=== PATIENT | male | born 1975 | race African-American/Black ===

== ENCOUNTER 2016-10-13 15:58 | Inpatient (IN) ==
[2016-10-13] MEDS ORDERED: HYDROmorphone 2 MG/1 ML VIAL IV STA (16:46)
[2016-10-13] MEDS ORDERED: THIAMINE INJ 100 MG, FOLIC ACID INJ 1 MG, MAGNESIUM SULF INJ 2 GM, MULTIVITAMIN INJ 10 ... IV ONE (16:46)
[2016-10-13] MEDS ORDERED: ONDANSETRON 4 MG/2 ML VIAL IV STA (16:46)
--- NOTE | 2016-10-13 16:47 | Emergency Department Note ---
IJarad Brittany, am scribing for, and in the presence of, Yoselin Michaud DO 16:42. IJaswant Debra, DO, personally performed the services described in this documentation, ascribed by Muna Abraham in my presence, and it is both accurate and complete 647 . Arrival - Arrival Chief Complaint: Non-Specific Stated Complaint: GI bleed ED Nursing Triage Note: pt arrived by ems from home with c/o "rectal bleeding." Pt has obvious ascites to abd, bruising to arms, abd, and flank and pt is jaundiced. pt's scrotum is massively enlarged with bleeding and purulent drainage noted to creases of groin. no bleeding noted at rectum. pt also reports recent falls. pt states was seen at [facility] in [place] last saturday. Mode of Arrival: Stretcher Limitations: No Limitations Source: Patient, RN Notes Reviewed - History of Present Illness HPI Narrative: Patient is a 41 y/o black male presenting to the ED by EMS for further evaluation of rectal bleeding. Patient and family do not disclose exact date bleeding onse, but patient does mention he noticed this while providing perineal care. They do however mention that patient was seen at [place], [place] a week ago, but patient did not receive any further treatment secondary to the need for payment upfront -per patient. He has obvious ascites, abdominal distention, and scleral icterus. Patient has a massively enlarged penis and testicles to such an extent that the meatus is not visible. It is unknown the duration of this enlargement. Patient states he has tried to be seen about this, but due to finances he has not been able to have a full work up without some type of payment. He denies ever being told of history of Cirrhosis. He does admit to history of ETOH use, but last use was 1-2 months ago. Patient has a history of seizures and takes Dilantin for this. Upon EMS arrival to his residence, patient had a systolic in the 70's. He was given a 250 cc bolus en route to the ED and in room at current he has a systolic of 100. Patient has no other complaint/pain. Allergies/Adverse Reactions: Allergies Allergy/AdvReac Type Severity Reaction Status Date / Time No Known Allergies Allergy Verified 10/13/16 16:18 Home Medications: Home Medications Medication Instructions Recorded Confirmed Type Phenytoin ER Cap [Dilantin Cap] 300 mg PO BEDTIME 10/13/16 10/13/16 History Review of System - Review of System 12 point system: reviewed and no additional remarkable complaints except as stated - Review of System Eyes: Present: as per HPI Gastrointestinal: Present: as per HPI, hematochezia Medical,Surgical,& Family Hx - Medical History Cardio: History of: Hypertension Neurology: History of: Seizures - Social History Smoking Status: Current every day smoker Frequency of Alcohol Use: Occasionally Type of Drug Use: None Exam Vital Signs: Vital Signs Temperature 98.5 F 10/13/16 16:41 Pulse Rate 65 10/13/16 16:41 Respiratory Rate 18 10/13/16 16:41 Blood Pressure 100/67 10/13/16 16:41 O2 Sat by Pulse Oximetry 100 10/13/16 15:58 - General General appearance: alert, in no apparent distress - Head Head exam: Present: atraumatic, normocephalic, normal inspection - Eye Eye exam: Present: PERRL, EOMI, scleral icterus. Absent: normal appearance - ENT ENT exam: Present: normal exam, normal oropharynx - Neck Neck exam: Present: normal inspection, full ROM, trachea midline - Chest Chest inspection: Present: normal inspection, symmetric chest wall rise - Respiratory Respiratory exam: Present: normal lung sounds bilaterally. Absent: rales, rhonchi, wheezes - Cardiovascular Cardiovascular exam: Present: regular rate, normal rhythm, normal heart sounds. Absent: murmur, rubs, gallop - Abdominal Exam Abdominal exam: Present: soft, distention, tenderness (diffusely tender on the right of the abdomen), normal bowel sounds, organomegaly (palpably enlarged liver, border is palpable), ascites - exam: Absent: normal inspection (penile and testicular edema, meatus is not visible) - Extremities Exam Extremities exam: Present: normal inspection - Back Exam Back exam: Present: normal inspection - Neurological Exam Neurological exam: Present: alert, oriented X3, CN II-XII intact. Absent: motor sensory deficit - Psychiatric Psychiatric exam: Present: normal affect, normal mood - Skin Skin exam: Present: warm, dry Course Course Narrative: spoke with hospitalist who will admit pt Results - Labs CBC & BMP: 10/13/16 16:42 10/13/16 16:42 Lab Results: I have reviewed the patients labs Labs: Laboratory Tests 10/13/16 10/13/16 16:42 16:42 WBC 9.3 RBC 2.98 L Hgb 7.3 L Hct 21.3 L MCV 71.5 L MCH 25 L RDW 25.4 H Plt Count 74 L Lymph % (Auto) 17.8 L [place] % (Auto) 19.7 H [place] # (Auto) 1.8 H INR 1.9 PT Patient/Control Mix 20.4 Circ Anticoag PTT 39.9 Laboratory Tests 10/13/16 16:42 Sodium 138 Potassium 3.1 L Chloride 103 Carbon Dioxide 23 Anion Gap 15.1 H BUN 25 H Creatinine 2.80 H GFR Calculation 37 BUN/Creatinine Ratio 8.00 Glucose 147 H Calculated Osmolality 281.7 Calcium 7.1 L Total Bilirubin 7.10 H AST 92 H Albumin 1.3 L Globulin 5.7 H Albumin/Globulin Ratio 0.2 L Laboratory Tests 10/13/16 16:42 Ammonia 63 H Lipase 372.0 - Diagnostic Findings Procedure: Ultrasound: report reviewed by me (await report) Disposition Clinical Impression: Lower gastrointestinal hemorrhage Case discussed with: patient, patient's family Disposition: Still a Patient Condition: Stable Time of Disposition: 17:57
[2016-10-13] MEDS ORDERED: HYDROmorphone 2 MG/1 ML VIAL ONE (16:52)
[2016-10-13] MEDS ORDERED: ONDANSETRON 4 MG/2 ML VIAL ONE (16:52)
[2016-10-13 16:57] LABS: Basophils % 0.3 % (0.0-0.8); Eosinophils # 0.2 10*3/uL (0.0-0.87); Eosinophils % 1.7 % (0.00-10.9); Hematocrit 21.3 VOL% (42.0-52.0); Hemoglobin 7.3 GM/DL (14.0-18.0); Immature Granulocytes % 0.5 %; Immature Granulocytes Absolute 0.05 #; Lymphocytes # 1.7 10*3/uL (1.4-4.0); Lymphocytes % 17.8 % (21.2-54.2); Mean Corpuscular HGB Conc 34.3 GM/DL (32-36); Mean Corpuscular Hemoglobin 25 PG (27-34); Mean Corpuscular Volume 71.5 FL (87-102); Monocytes # 1.8 10*3/uL (0.11-0.8); Monocytes % 19.7 % (1.7-12.7); Neutrophils # 5.6 10*3/uL (1.4-7.4); Red Blood Count 2.98 MC/CUMM (3.8-5.5); Red Cell Distribution Width 25.4 % (9.3-17.3); White Blood Count 9.3 T/CUMM (4-12)
[2016-10-13 17:05] LABS: Platelet Count 74 T/CUMM (130-400)
[2016-10-13 17:07] LABS: INR 1.9; PT Patient Result 20.4 SECS; Partial Thromboplastin Time 39.9 SECS (0-40)
[2016-10-13 17:14] LABS: Albumin 1.3 G/DL (3.4-5.0); Bilirubin,Total 7.1 MG/DL (0.2-1.0); Calcium 7.1 MG/DL (8.5-10.1); Osmolality,Calculated 281.7 MOS/KG (273-304); Potassium 3.1 MMOL/L (3.5-5.1)
[2016-10-13] MEDS ORDERED: POTASSIUM CHLORIDE 20 MEQ TABLET PO STA (17:17)
[2016-10-13 17:42] LABS: Band Neutrophils 1 % (0-10); Eosinophils 1 % (0-10); Hypochromasia 1+; Lymphocytes 13 % (20-55); Platelet Estimate Decreased; Segmented Neutrophils 76 % (50-85); Target Cells Few; Total Cells Counted 100
--- NOTE | 2016-10-13 18:06 | Ultrasound Report ---
Exam: US scrotum Date: 10/13/2016 4:35 PM Indication: Enlarged scrotum Comparison: None Findings: Right testicle. The right testicle is not definitely identified in the markedly enlarged scrotum. Right epididymis is not definitely identified. Left testicle. 3.4 x 2.2 x 2.3 cm with arterial Doppler blood flow and spectral analysis Left epididymis. Not definitely visualized Impression: 1. Somewhat limited study due to markedly edematous and swollen scrotum. Large bilateral large hydroceles. The right testicle is not definitely identified. 2. The left testicle demonstrates preserved blood flow. PROCEDURE INTERPRETED AT [facility] DEPARTMENT OF RADIOLOGY Final Report Signed by: Hood Marr
[2016-10-13] MEDS ORDERED: DOCUSATE SODIUM 100 MG CAPSULE PO PRN (18:30)
[2016-10-13] MEDS ORDERED: ACETAMINOPHEN 325 MG TABLET PO PRN (18:30)
--- NOTE | 2016-10-13 18:35 | Hospitalist History & Physical ---
<Dov Skaggsakuamodesta - Last Filed: 10/13/16 18:33> Assessment and Plan (1) Anemia Status: Acute Current Visit: Yes (2) Hypokalemia Status: Acute Current Visit: Yes (3) Seizure disorder Status: Acute Current Visit: Yes (4) Hepatic encephalopathy Status: Acute Current Visit: Yes (5) ETOH abuse Status: Acute Current Visit: Yes History of Present Illness History of present illness: Mr. Wagner is a 41 year old male Home Medications Medication Instructions Recorded Confirmed Type Phenytoin ER Cap [Dilantin Cap] 300 mg PO BEDTIME 10/13/16 10/13/16 History Allergies Allergy/AdvReac Type Severity Reaction Status Date / Time No Known Allergies Allergy Verified 10/13/16 16:18 Medical,Surgical,& Family Hx - Medical History Cardio: History of: Hypertension Neurology: History of: Seizures - Social History Smoking Status: Current every day smoker Frequency of Alcohol Use: Occasionally Type of Drug Use: None Exam - Constitutional Vitals: Period Temp Pulse Resp BP Sys/Lai Pulse Ox Last 24 Hr 98.5 F-98.5 F 65-93 16-18 95-106/58-68 98-100 Results - Labs CBC & BMP: 10/13/16 16:42 10/13/16 16:42 <Juancarlos Lorenzana - Last Filed: 10/13/16 19:54> Assessment and Plan - Time spent with patient Time spent with patient: Greater than 30 minutes (I spent over 45 minutes with this patient and his family at the bedside explaining his diagnosis and treatment plan.) (1) End stage liver disease Status: Chronic Assessment and plan: The patient presents with multiple medical problems related to chronic liver disease and cirrhosis. His family members report he was given a diagnosis of advanced cirrhosis with 6 months to live approximately 18 months ago. He has significant bruising and jaundice with elevated bilirubin and elevated INR as well as thrombocytopenia and a long sequela of liver disease. Most pressing is his scrotal swelling and edema with pain and skin breakdown as a result. They understand that management of his symptoms may be difficult and that there is no cure for his illness. He is DNR. Current Visit: Yes (2) Cirrhosis of liver Status: Acute Current Visit: Yes Qualifiers: Hepatic cirrhosis type: alcoholic cirrhosis Ascites presence: with ascites Qualified Code(s): K70.31 - Alcoholic cirrhosis of liver with ascites (3) Thrombocytopenia Status: Acute Assessment and plan: Platelet count 74,000 Current Visit: Yes (4) LOUIS (acute kidney injury) Status: Acute Assessment and plan: Elevated creatinine suspicious for hepatorenal syndrome in a patient with chronic liver disease. Current Visit: Yes (5) Scrotal edema Status: Acute Current Visit: Yes (6) Anemia Status: Acute Assessment and plan: This is likely multifactorial related to chronic liver disease as well as some acute blood loss due to his thrombocytopenia Current Visit: Yes (7) Hypokalemia Status: Acute Current Visit: Yes (8) Seizure disorder Status: Chronic Assessment and plan: On phenytoin. Will check levels. Current Visit: Yes History of Present Illness Chief complaint: Scrotal pain and swelling with rectal bleeding History of present illness: Mr. Wagner is a 41 year old black male that presented to the emergency department with scrotal pain and swelling. He is accompanied by his sisters who provide the majority of the history. Patient reports he was seen at another hospital in [facility] a few days ago and was sent home. Triage records indicate the patient complains of rectal bleeding but is unsure if it is coming from the rectum or scrotum due to significant amount of swelling in that area. According to his family members, this has been an ongoing problem for over a year. After approximately 30 minutes of questioning the patient and his family members they were forthcoming with the fact that he was diagnosed with advanced cirrhosis and given approximately 6 months to live- this happened approximately 18 months ago. Initially the patient continued to drink alcohol but stopped drinking back in April. He is noted to be very ill -appearing with jaundice and scleral icterus as well as multiple areas of bruising and is very weak and lethargic. Further examination reveals a markedly enlarged scrotum that is very painful to touch and has evidence of skin breakdown bilaterally with some bleeding and oozing. The pain is severe, constant and worsening over the last several days to months. The bleeding is also bilateral but worse on the left. There is also a foul smelling discharge from the perineal area. The patient is being admitted to the hospitalist service for further evaluation and treatment of his severe scrotal edema pain and swelling as well as treatment of the sequela of chronic liver disease and consultation with gastroenterology, nephrology and possibly paracentesis for relief of symptoms. I have explained to the patient and his family the severity of his illness and that his 30 day survival is questionable given the degree of liver dysfunction. The family explained that they understand and expected this and only wish for him to be made comfortable. They agreed to not resuscitate him in the event of cardiopulmonary arrest with the understanding that his chronic liver disease is not curable. We will consider therapeutic paracentesis if this produces some comfort-however given his coagulopathy this may be difficult to achieve. Medical,Surgical,& Family Hx - Medical History Cardio: History of: Hypertension Neurology: History of: Seizures Gastrointestinal: History of: Liver Problems - Surgical History Orthopedic Surgeries: Surgical HX of;: Orthopedic Surgery (Ankle surgery) - Family History Family History: Reports;: Family Hypertension - Social History Smoking Status: Current every day smoker Frequency of Alcohol Use: Occasionally Type of Drug Use: None Marital Status: Single Lives With:: Parent Functional capacity: independent ambulation 12 point system: reviewed and no additional remarkable complaints except as stated - Constitutional Constitutional: Present: fatigue, lethargy, malaise - Gastrointestinal Gastrointestinal: Present: as per HPI, abdominal pain, bloating, early satiety, nausea, jaundice - Genitourinary Genitourinary: Present: as per HPI, scrotal swelling Exam - Constitutional Vitals: Period Temp Pulse Resp BP Sys/Lai Pulse Ox Last 24 Hr 82-85 18-18 99-106/58-58 100-100 General appearance: disheveled Exam: Constitutional System: Moderate distress. No tremulousness. Head: Normocephalic, atraumatic. Ears, Nose and Throat System: No pain or tenderness. No epistaxis or discharge. Eyes System: Pupils equal, round, and reactive. Extraocular muscles intact. Scleral icterus noted Neck: Supple, without adenopathy, No jugular venous distention. No thyromegaly, neck mass, or prior surgery apparent. Respiratory System: Chest clear to auscultation. Cardiovascular System: Heart with regular rate and rhythm. No murmur. GI System: Abdomen soft, nontender. Normo active bowel sounds present. Distended with ascites. Umbilical hernia noted. Large areas of bruising along the right flank noted. Musculoskeletal System: limbs with no pedal edema. Full distal pulses. Multiple areas of bruising along the chest wall. Neurological System: No discernable sensory deficit. No aphasia. No evidence of encephalopathy at this time Psychiatric System: Conversation is rational Genitourinary: Severe scrotal swelling including the suprapubic fat pad and the surrounding perineum. There is skin breakdown noted bilaterally along the scrotum with purulent discharge and a foul odor. Bleeding is noted from the skin breakdown. The penis is not visible secondary to significant swelling. The testicles are not palpable. The entire area his pain full to touch. Results - Labs CBC & BMP: 10/13/16 16:42 10/13/16 16:42 Lab Results: I have reviewed the past 24 hour labs - Diagnostic Findings Procedure: Ultrasound: report reviewed by me, X-ray: report reviewed by me
[2016-10-13] MEDS ORDERED: POTASSIUM CHLORIDE 20 MEQ TABLET PO ONE (18:37)
[2016-10-13] MEDS ORDERED: ZALEPLON 5 MG CAPSULE PO PRN (19:26)
[2016-10-13] MEDS ORDERED: ONDANSETRON 4 MG/2 ML VIAL IV PRN (19:26)
[2016-10-13] MEDS ORDERED: MORPHINE 2 MG/1 ML SYRINGE IV PRN (19:26)
[2016-10-13] MEDS: LACTULOSE 20 GM/30 ML UDCUP PO SCH ×3 (21:16→23:51)
[2016-10-14] MEDS: LACTULOSE 20 GM/30 ML UDCUP PO SCH ×6 (03:20→22:33)
[2016-10-14 05:44] LABS: Basophils % 0.3 % (0.0-0.8); Eosinophils # 0.2 10*3/uL (0.0-0.87); Eosinophils % 2.3 % (0.00-10.9); Hematocrit 21.5 VOL% (42.0-52.0); Hemoglobin 7.2 GM/DL (14.0-18.0); Immature Granulocytes % 0.4 %; Immature Granulocytes Absolute 0.04 #; Lymphocytes # 2.8 10*3/uL (1.4-4.0); Lymphocytes % 28.5 % (21.2-54.2); Mean Corpuscular HGB Conc 33.5 GM/DL (32-36); Mean Corpuscular Hemoglobin 24 PG (27-34); Mean Corpuscular Volume 72.6 FL (87-102); Mean Platelet Volume 9.8 FL (9.6-12.0); Monocytes % 20.1 % (1.7-12.7); Neutrophils # 4.8 10*3/uL (1.4-7.4); Neutrophils % 48.4 % (38.7-73.9); Platelet Count 79 T/CUMM (130-400); Red Blood Count 2.96 MC/CUMM (3.8-5.5); Red Cell Distribution Width 25.3 % (9.3-17.3); White Blood Count 9.9 T/CUMM (4-12)
[2016-10-14 06:12] LABS: Albumin 1.3 G/DL (3.4-5.0); Bilirubin,Total 6.9 MG/DL (0.2-1.0); Osmolality,Calculated 275.8 MOS/KG (273-304); Potassium 3.2 MMOL/L (3.5-5.1)
[2016-10-14 06:22] LABS: Magnesium 2.2 MG/DL (1.8-2.4); Risk Ratio 4.54; Thyroid Stimulating Hormone 3.8 uIU/ml (0.358-3.74); VLDL CHOLESTEROL 15.2 MG/DL
[2016-10-14 06:50] LABS: Band Neutrophils 2 % (0-10); Eosinophils 4 % (0-10); Lymphocytes 16 % (20-55); Segmented Neutrophils 70 % (50-85); Total Cells Counted 100
[2016-10-14 06:51] LABS: Hypochromasia 1+; Ovalocytes Slight; Platelet Estimate Decreased; Target Cells Few
--- NOTE | 2016-10-14 07:48 | Hospitalist Progress Note ---
Assessment and Plan (1) Anemia Status: Acute Assessment and plan: His hematocrit and hemoglobin are 21.5 and 7.2 respectively. He will receive 2 units of packed red blood cell transfusion today. Current Visit: Yes Qualifiers: Anemia type: unspecified type Qualified Code(s): D64.9 - Anemia, unspecified (2) Hypokalemia Status: Acute Assessment and plan: His potassium today is 3.2. He will receive intravenous potassium chloride replacement today. Current Visit: Yes (3) End stage liver disease Status: Chronic Current Visit: Yes (4) Cirrhosis of liver Status: Acute Assessment and plan: He has alcoholic cirrhosis and, according to previous medical records, end- stage liver disease. He is DNR. Current Visit: Yes Qualifiers: Hepatic cirrhosis type: alcoholic cirrhosis Ascites presence: with ascites Qualified Code(s): K70.31 - Alcoholic cirrhosis of liver with ascites (5) Thrombocytopenia Status: Acute Assessment and plan: His platelets today are 79,000. They were 74,000 yesterday. He will be transfused platelets as necessary. I would not anticipate platelet transfusions until his platelet count is less than 20,000. Current Visit: Yes (6) LOUIS (acute kidney injury) Status: Acute Assessment and plan: He most probably has hepatorenal syndrome. His BUN and creatinine yesterday were 25 and 2.8 respectively. They are 23 and 2.0 respectively today. Current Visit: Yes (7) Scrotal edema Status: Acute Assessment and plan: He has severe edema and skin breakdown of his scrotum and penis. There was no evidence of pus. He is having difficulty urinating. We have been unable to insert a Lubin catheter. Urology has been consulted. Current Visit: Yes (8) Seizure disorder Status: Chronic Assessment and plan: He is chronically treated with phenytoin. His phenytoin level yesterday was low at 3.4. His phenytoin dosage will be adjusted. Current Visit: Yes Hospitalist: Subjective Interval history: Mr. Wagner is a 41-year-old -[place] male with cirrhosis and end-stage liver disease. He was admitted to the hospital yesterday because of severe swelling, pain, and skin breakdown of his scrotum and penis. Attempts to insert a Lubin catheter have been unsuccessful. Admission laboratory testing demonstrated him to have the following: Hematocrit 21.3, hemoglobin 7.3, potassium 3.1, BUN 25, creatinine 2.8. The immediate problems that will be managed today include transfusion of 2 units of packed red blood cells, potassium chloride replacement, and urology consultation for management of his edema and infection of his scrotum and penis. Exam - Constitutional Vitals: Period Temp Pulse Resp BP Sys/Lai Pulse Ox Last 24 Hr 97.6 F-98.6 F 81-89 16-20 92-107/52-68 94-100 General appearance: no acute distress - Head Head exam: Present: normal inspection, normocephalic - Eye Eye exam: Present: EOMI Pupils: Present: BONNIE - Neck Neck exam: Present: normal inspection - Respiratory Respiratory exam: Present: clear to auscultation bilaterally - Cardiovascular Cardiovascular exam: Present: regular rate and rhythm - GI/Abdominal GI/Abdominal exam: Present: distended, soft, other (There is severe edema and skin breakdown of the scrotum and penis.) - Extremities Exam Extremities exam: Present: edema - Back Exam Back exam: Present: normal inspection - Neurological Exam Neurological exam: Present: alert, oriented X3 - Psychiatric Psychiatric exam: Present: normal affect, normal mood - Skin Skin exam: Present: normal color, warm, dry Results - Labs CBC & BMP: 10/14/16 04:18 10/14/16 04:18 Quality Measures - VTE Contraindication to Pharmacological VTE Prophylaxis: Thrombocytopenia
[2016-10-14] MEDS ORDERED: SODIUM CHLORIDE 0.9% 250 ML IV PRN (08:00)
--- NOTE | 2016-10-14 10:57 | Ultrasound Report ---
Exam: US abdomen Date:10/14/2016 4:00 AM Indication: Scrotal swelling, liver disease, ascites Comparison: None Findings: Liver: Liver is enlarged measuring 21 cm of the right lobe. There is increased echogenicity with mild heterogeneity throughout the hepatic parenchyma. Slightly nodular contour is also suggested. No definite focal masses are identified. Portal vein is patent with normal directional flow. There is mild pulsatility suggested on spectral analysis, which may correspond to a degree of portal hypertension. Gallbladder: Gallbladder is not enlarged. There is prominent pericholecystic fluid and mild gallbladder wall thickening. No stones are visualized. There is some nonmobile echogenicity within the dependent portion of the gallbladder which may represent sludge. Da Silva's sign is negative. CBD: 0.4 cm Pancreas: Not visualized Kidneys Right kidney: 12.3 x 4.4 x 4.7 cm and appears within normal limits with no hydronephrosis. Left kidney: 12.6 x 5.4 x 5.0 cm and appears within normal limits without hydronephrosis. Aorta IVC: IVC is patent. Aorta is not well visualized but no obvious aneurysm is seen. There is no significant ascites visualized within the abdomen. Spleen: Spleen is mildly enlarged measuring 13.4 x 4.8 x 4.6 cm with no focal lesions. Impression: 1. Gallbladder wall thickening and pericholecystic fluid with probable internal sludge. Findings are suggestive but not specific for acute cholecystitis. Differential consideration includes heart failure and liver failure with portal hypertension. 2. Mild hepatosplenomegaly with findings suggestive of underlying cirrhosis. No other acute sonographic abnormality within the abdomen. PROCEDURE INTERPRETED AT [facility] DEPARTMENT OF RADIOLOGY Final Report Signed by: Hood Marr
[2016-10-14] MEDS: PANTOPRAZOLE 40 MG TABLET PO SCH (11:36)
[2016-10-14] MEDS: POTASSIUM CHLORIDE 20 MEQ TABLET PO SCH (11:36)
[2016-10-14] MEDS ORDERED: POTASSIUM CHLORIDE RIDER 10 MEQ in PREMIX 1 EACH IV PRN (12:09)
--- NOTE | 2016-10-14 12:46 | Gastrointestinal Consult Note ---
Assessment and Plan (1) Cirrhosis of liver Status: Acute Assessment and plan: With associated ascites and hepatic encephalopathy. His prognosis is very poor with his continued alcohol use. Patient's mother understands gravity of his condition. Would manage with Aldactone/Lasix and add lactulose therapy. Avoid sedative/hypnotic therapy. Check stool for occult blood and consider EGD if positive. Note DNR status. Current Visit: Yes Qualifiers: Hepatic cirrhosis type: alcoholic cirrhosis Ascites presence: with ascites Qualified Code(s): K70.31 - Alcoholic cirrhosis of liver with ascites History of Present Illness Chief complaint: Increased somnolence with abdominal swelling History of present illness: Mr. Wagner is a 41 year old male with long history of alcohol abuse according to his mother. He was diagnosed with alcoholic cirrhosis around 18 months ago while hospitalized in [place]. His mother states that he was told that he had 6 months to live and that his only chance of survival was to totally abstain from alcohol. She says he did this for around 6 months and then began drinking again. He drinks every day the week all day long she says. She is unable to quantify how much alcohol he does drink but states he drinks beer, whiskey, and any other alcohol that he can obtain. She has noted over the last few weeks that has been more somnolent during the day. He has developed increased abdominal distention along with marked scrotal swelling. The last few weeks his scrotum has become more irritated and drips and oozes blood whenever he moves around. No gross GI bleeding has been noted. He denies any hematemesis or melena. He denies abdominal pain or fever. He has no prior history of peptic ulcers or GI bleeding in the past that they are aware of. Home Medications Medication Instructions Recorded Confirmed Type Phenytoin ER Cap [Dilantin Cap] 300 mg PO BEDTIME 10/13/16 10/13/16 History Allergies Allergy/AdvReac Type Severity Reaction Status Date / Time No Known Allergies Allergy Verified 10/13/16 16:18 Medical,Surgical,& Family Hx - Medical History Cardio: History of: Hypertension Neurology: History of: Seizures Gastrointestinal: History of: Liver Problems - Surgical History Orthopedic Surgeries: Surgical HX of;: Orthopedic Surgery (Ankle surgery) - Family History Family History: Reports;: Family Cancer (father- bone ca) Denies;: Family Anesthesia Reaction, Family Diabetes, Family Heart Disease, Family Hematology, Family Hypertension, Family Psychiatric Problems, Family Stroke, Additional Family History - Social History Smoking Status: Current every day smoker Frequency of Alcohol Use: Frequently Type of Drug Use: None - Constitutional Constitutional: Present: daytime sleepiness, fatigue, weight gain. Absent: fever(s) - EENT Nose, mouth and throat: Absent: epistaxis, headache(s) - Cardiovascular Cardiovascular: Absent: chest pain with activity, dyspnea on exertion, orthopnea , PND - Gastrointestinal Gastrointestinal: Present: bloating. Absent: abdominal pain, hematemesis, hematochezia, nausea, vomiting - Genitourinary Genitourinary: Absent: dysuria, flank pain, hematuria - Endocrine Endocrine: Present: fatigue - Hematologic/Lymphatic Hematologic/Lymphatic: Present: easy bleeding Exam - Constitutional Vitals: Period Temp Pulse Resp BP Sys/Lai Pulse Ox Last 24 Hr 97.6 F-98.6 F 81-89 16-20 91-107/52-68 94-100 General appearance: no acute distress (Somnolent), under weight - Head Head exam: Present: normocephalic, atraumatic - Eye Eye exam: Present: EOMI, scleral icterus - Respiratory Respiratory exam: Present: clear to auscultation bilaterally. Absent: wheezes - Cardiovascular Cardiovascular exam: Present: regular rate and rhythm. Absent: gallop, rubs - GI/Abdominal GI/Abdominal exam: Present: normal bowel sounds, ascites, distended, soft. Absent: tenderness - Extremities Exam Extremities exam: Present: edema (Marked scrotal edema with diameter 12-15 cm) - Neurological Exam Neurological exam: Present: oriented X3, CN II-XII intact, other (Positive asterixis). Absent: motor sensory deficit - Psychiatric Psychiatric exam: Present: flat affect - Skin Skin exam: Present: warm, dry Results - Labs CBC & BMP: 10/14/16 04:18 10/14/16 04:18 Lab Results: I have reviewed the past 24 hour labs Quality Measures - VTE Contraindication to Pharmacological VTE Prophylaxis: Thrombocytopenia
--- NOTE | 2016-10-14 13:18 | Nephrology Consult Note ---
History of Present Illness Chief complaint: Admitted for scrotal edema. Referred for creatinine elevation. History of present illness: Mr. Wagner is a 41 year old male admitted for scrotal and abd swelling. ETOH cirrhosis, still drinking all day. DNR/DNI. Urology consulted for mcgarry placement. Seen by GI. Poor prognosis. Home Medications Medication Instructions Recorded Confirmed Type Phenytoin ER Cap [Dilantin Cap] 300 mg PO BEDTIME 10/13/16 10/13/16 History Allergies Allergy/AdvReac Type Severity Reaction Status Date / Time No Known Allergies Allergy Verified 10/13/16 16:18 Medical,Surgical,& Family Hx - Medical History Cardio: History of: Hypertension Neurology: History of: Seizures Gastrointestinal: History of: Liver Problems - Surgical History Orthopedic Surgeries: Surgical HX of;: Orthopedic Surgery (Ankle surgery) - Family History Family History: Reports;: Family Cancer (father- bone ca) Denies;: Family Anesthesia Reaction, Family Diabetes, Family Heart Disease, Family Hematology, Family Hypertension, Family Psychiatric Problems, Family Stroke, Additional Family History - Social History Smoking Status: Current every day smoker Frequency of Alcohol Use: Frequently Type of Drug Use: None Exam - Vital Signs Vital signs: Period Temp Pulse Resp BP Sys/Lai Pulse Ox Last 24 Hr 97.6 F-98.6 F 81-89 16-20 85-107/50-68 94-100 - General Appearance General appearance: cachectic, chronically ill EENT: ATNC, PERRL, scleral icterus Neck: no JVD, no thyromegaly Respiratory: no kyphosis, clear Cardiology: no murmurs, no rub, no edema Gastrointestinal: hypoactive bowel sounds, no tenderness, distended Integumentary: no rash, warm and dry Neurologic: no focal deficit, disoriented Musculoskeletal: no deformities, no erythema Psychiatric: depressed, cooperative Results - Labs CBC & BMP: 10/14/16 04:18 10/14/16 04:18 Assessment and Plan (1) LOUIS (acute kidney injury) Problem details: Functional prerenal azotemia with ESLD. High risk for hepatorenal syndrome. Not a dialysis candidate as he is not a liver transplant candidate. Status: Acute Assessment and plan: Start misoprostol to help reverse profound intrarenal vasoconstriction seen in ESLD. Check urine sodium to help guide diuretic therapy for ascites. Aldactone alone for urine Na >30, add lasix when urine Na 10-30. at ratio of 100 aldactone to 40 lasix. Trial of octreotide to help reduce splanchnic bed dilation. Midodrine 2.5mg po q8h to help reverse peripheral vasodilation. Current Visit: Yes (2) End stage liver disease Status: Chronic Current Visit: Yes
--- NOTE | 2016-10-14 13:34 | Urology Consultation ---
Assessment and Plan - Time spent with patient Time spent with patient: Greater than 30 minutes (1) Anasarca Status: Acute Current Visit: Yes (2) Scrotal edema Status: Acute Assessment and plan: I will have to reduce some of the scrotal edema to expose the penis to place a catheter. 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 Wagner is a 41 year old male who has multiple problems. He has cirrhosis of the liver and has anasarca. He has a very large swollen scrotum and needs a urinary catheter in the nursing service is unable to place. He denies having previous surgery. He says he voids with good stream. Denies having a urinary tract infection. Denies stones. Denies malignancies and denies this in the family. His mother is present. He did have an episode of gross hematuria. I am not sure if that is related to the hidden penis or from a urinary tract infection. He has a rather large scrotum from the anasarca with breakdown and I was asked to place a Lubin. CC: Juancarlos Lorenzana MD - Home Medications and Allergies Home Medications: Home Medications Medication Instructions Recorded Confirmed Type Phenytoin ER Cap [Dilantin Cap] 300 mg PO BEDTIME 10/13/16 10/13/16 History Allergies/Adverse Reactions: Allergies Allergy/AdvReac Type Severity Reaction Status Date / Time No Known Allergies Allergy Verified 10/13/16 16:18 - Genitourinary Genitourinary: Present: hematuria, scrotal swelling, other (Bleeding from scrotum due to breakdown). Absent: difficulty urinating, dysuria, flank pain, nocturia, testicular mass, testicular pain Exam - Constitutional Vitals: Period Temp Pulse Resp BP Sys/Lai Pulse Ox Last 24 Hr 97.6 F-98.6 F 81-89 16-20 85-107/50-68 94-100 - Eye Eye exam: Present: scleral icterus - GI/Abdominal GI/Abdominal exam: Present: ascites, distended, firm, hypoactive bowel sounds, hernia (Questionable). 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
--- NOTE | 2016-10-14 13:41 | Operative Note ---
Date of procedure: 10/14/16 Pre-op diagnosis: Anasarca with hidden penis, needs urethral catheter Post-op diagnosis: same Procedure: 41-year-old black male with cirrhosis and anasarca. Has a very large tense scrotum from ascites and potential hernia. Needs a urinary catheter. Patient was compressed to eliminate some of the edema. His penis was then exposed and pulled up. Foreskin was withdrawn. He was then prepared and draped in usual sterile manner. 2% Xylocaine jelly is placed in urethra and bladder for anesthesia. 18 coud catheter was able to,with some significant manipulation,was able to pass into the bladder. 300 cc were in the bladder. Catheter was left to gravity drainage. Patient tolerated procedure well. Implants: 18 Prydeinig coud Lubin catheter Anesthesia: local Surgeon / Physician: Neville Leon Estimated blood loss: none Urine output: 300 Specimens: other (Sent for culture) Condition: stable Disposition: no change Results - Labs CBC & BMP: 10/14/16 04:18 10/14/16 04:18 Discharge Plan - Discharge Medications No Action Phenytoin ER Cap [Dilantin Cap] 300 mg PO BEDTIME - Follow Up or Referral - Forms/Instructions
[2016-10-14] MEDS: MIDODRINE 5 MG TABLET PO SCH ×2 (15:45→20:23)
[2016-10-14] MEDS: SPIRONOLACTONE 50 MG TABLET PO SCH (15:45)
[2016-10-14] MEDS: FUROSEMIDE 20 MG/2 ML VIAL IV SCH (15:46)
[2016-10-14] MEDS: OCTREOTIDE 100 MCG/ML SYRINGE SUBCUT SCH ×2 (17:23→20:22)
[2016-10-14] MEDS: miSOPROStol 200 MCG TABLET PO SCH ×2 (17:23→20:23)
[2016-10-14 17:27] LABS: Apearance,Urine Slightly Hazy (Clear); Bilirubin,Urine Moderate mg/dL (Negative); Blood, Urine Negative (Negative); Glucose,Urine (UA) Negative (Negative); Hyaline Casts,Urine 10 /LPF (0-3); Ketones,Urine Negative (Negative); Mucus,Urine Occasional /LPF (Occasional); Nitrite,Urine Negative (Negative); Protein,Urine 30 MG/DL; RBC,Urine 1 /HPF (0-4); Squamous Epithelial Cell,Urine Occasional /HPF (0-10); Urine Color Amber (Yellow); Urine Specific Gravity 1.024 (1.001-1.035); WBC,Urine 5 /HPF (0-6)
[2016-10-14] MEDS: PHENYTOIN ER 100 MG CAPSULE PO SCH (20:26)
[2016-10-15] MEDS: LACTULOSE 20 GM/30 ML UDCUP PO SCH ×5 (03:54→20:27)
[2016-10-15 07:02] LABS: Basophils # 0.1 10*3/uL (0.0-0.2); Basophils % 0.5 % (0.0-0.8); Eosinophils # 0.2 10*3/uL (0.0-0.87); Eosinophils % 2.1 % (0.00-10.9); Hematocrit 23.7 VOL% (42.0-52.0); Hemoglobin 8.1 GM/DL (14.0-18.0); Immature Granulocytes % 0.7 %; Immature Granulocytes Absolute 0.07 #; Lymphocytes # 2.7 10*3/uL (1.4-4.0); Lymphocytes % 27.1 % (21.2-54.2); Mean Corpuscular HGB Conc 34.2 GM/DL (32-36); Mean Corpuscular Hemoglobin 26 PG (27-34); Mean Corpuscular Volume 75.5 FL (87-102); Mean Platelet Volume 9.3 FL (9.6-12.0); Monocytes # 2.5 10*3/uL (0.11-0.8); Monocytes % 25.2 % (1.7-12.7); Neutrophils # 4.4 10*3/uL (1.4-7.4); Neutrophils % 44.4 % (38.7-73.9); Platelet Count 84 T/CUMM (130-400); Red Blood Count 3.14 MC/CUMM (3.8-5.5); Red Cell Distribution Width 23.9 % (9.3-17.3); White Blood Count 9.8 T/CUMM (4-12)
[2016-10-15 07:39] LABS: % Iron Saturation 74.5 % (18-50)
[2016-10-15 07:42] LABS: Albumin 1.1 G/DL (3.4-5.0); Bilirubin,Total 6.2 MG/DL (0.2-1.0); Osmolality,Calculated 267.4 MOS/KG (273-304); Potassium 3.7 MMOL/L (3.5-5.1); Total Protein 6.7 G/DL (6.4-8.3)
[2016-10-15 07:51] LABS: Band Neutrophils 3 % (0-10); Lymphocytes 13 % (20-55); Microcytosis 1+; Polychromasia Slight; Segmented Neutrophils 72 % (50-85); Spherocytes Few; Target Cells 2+; Total Cells Counted 100
--- NOTE | 2016-10-15 08:24 | Physician Query Form ---
CLICK EDIT DOCUMENT TO SELECT QUERY ANSWER --> OK --> SIGN Teresa Jung RN, CCDS Certified Clinical Environmental Compliance Engineer W) [phone] (f) [phone] [email or web address] PROVIDERS: Make your selection(s) from the choices in EACH section by typing an "x" and enter comments in the comment section. Please use your independent medical judgment in providing your response. This request does not imply that any particular answer is desired or expected. CLINICAL INDICATORS: (Providers should not edit this section) The medical record indicates that the patient was admitted with Cirrhosis, lower GI bleeding, anemia, HH of 7.3/21.3, and the patient was later given 2 units of blood. ---------"Patient and family do not disclose exact date bleeding " Based on the above, could you clarify which of the following conditions you are evaluating, treating, and/or monitoring? (x ) Blood loss anemia ( x) acute ( ) chronic ( ) acute on chronic ( ) Acute blood loss anemia on baseline chronic anemia ( ) Acute blood loss anemia as a complication of a procedure ( ) Iron deficiency anemia not associated with blood loss ( ) Dilutional anemia due to IV fluids ( ) Anemia due to chemotherapy ( ) Anemia due to neoplastic disease ( ) Anemia due to chronic kidney disease ( ) Pernicious anemia ( ) Aplastic anemia ( ) Hemolytic anemia ( ) immune ( ) non-immune - please specify cause: ( ) Anemia due to other condition, please specify: ( ) Clinically unable to determine COMMENTS: Use of terms such as suspected, likely, or probable (associated with a specific diagnosis that is being evaluated, monitored, or treated as if it exists) are acceptable and can be restated in the discharge summary if not ruled out. MTDD
--- NOTE | 2016-10-15 08:50 | Gastrointestinal Progress Note ---
Assessment and Plan (1) Cirrhosis of liver Status: Acute Assessment and plan: 10/15-hemoglobin of 8.1 following 2 units of blood. Bilirubin down slightly at 6.2, ammonia trending down at 47. Stool studies pending at present time. Continue to monitor for DTs/withdrawal seizures. Plan an addendum to followed by Dr. Jaquez. Current Visit: Yes Qualifiers: Hepatic cirrhosis type: alcoholic cirrhosis Ascites presence: with ascites Qualified Code(s): K70.31 - Alcoholic cirrhosis of liver with ascites Gastroenterology - PN: Subj Interval history: CC: Cirrhosis Patient is seen, awake and alert, with mother at bedside. He denies any complaints of pain other than in his scrotum at this time. He is tolerating his diet at present time. Denies any nausea or vomiting. He denies any overt bleeding as well. Hemoglobin is holding at 8.1 following 2 units of blood. Ammonia is down at 47 and he is having good bowel movements with the lactulose. No signs of DTs or withdrawal seizures at present time. Stool for occult blood is pending at present time. No repeat labs since admission noted. He did run a low-grade fever overnight. Bilirubin is down slightly at 6.2. Iron studies noted with a TIBC of 110, saturation 74.5. Normal iron at 82. ROS: Denies shortness of breath or chest pain Exam (Progress Note) - Constitutional Vitals: Period Temp Pulse Resp BP Sys/Lai Pulse Ox Last 24 Hr 97.5 F-100.6 F 74-96 16-20 85-109/50-70 97-99 General appearance: normal weight, no acute distress - Head Head exam: Present: normal inspection, normocephalic - Eye Eye exam: Present: scleral icterus, other (Lids and conjunctive are unremarkable ) - ENT ENT exam: Present: normal exam, normal oropharynx - Neck Neck exam: Present: normal inspection - Respiratory Respiratory exam: Present: clear to auscultation bilaterally. Absent: rales, rhonchi, wheezes - Cardiovascular Cardiovascular exam: Present: regular rate and rhythm. Absent: diastolic murmur , JVD, systolic murmur - GI/Abdominal GI/Abdominal exam: Present: normal bowel sounds, soft. Absent: ascites, distended, mass, organomegaly, tenderness - Extremities Exam Extremities exam: Present: normal inspection, full ROM - Back Exam Back exam: Present: normal inspection - Neurological Exam Neurological exam: Present: alert, oriented X3 - Psychiatric Psychiatric exam: Present: normal affect, normal mood - Skin Skin exam: Present: normal color, warm, dry Results - Labs CBC & BMP: 10/15/16 06:32 10/15/16 06:32 Lab Results: I have reviewed the past 24 hour labs
[2016-10-15] MEDS: OCTREOTIDE 100 MCG/ML SYRINGE SUBCUT SCH ×3 (09:18→20:28)
[2016-10-15] MEDS: SPIRONOLACTONE 50 MG TABLET PO SCH (09:19)
[2016-10-15] MEDS: PANTOPRAZOLE 40 MG TABLET PO SCH (09:19)
[2016-10-15] MEDS: miSOPROStol 200 MCG TABLET PO SCH ×4 (09:19→20:27)
[2016-10-15] MEDS: MIDODRINE 5 MG TABLET PO SCH ×3 (09:19→20:27)
[2016-10-15] MEDS: FUROSEMIDE 20 MG/2 ML VIAL IV SCH ×2 (09:20→16:26)
[2016-10-15] MEDS: POTASSIUM CHLORIDE 20 MEQ TABLET PO SCH (09:24)
[2016-10-15] MEDS: ACETYLCYSTEINE 600 MG CAPSULE PO SCH ×2 (11:47→20:27)
--- NOTE | 2016-10-15 14:27 | Nephrology Progress Note ---
Nephrology - PN: Subj Interval history: 24hr events. Kude catheter placement, 300cc urine in bladder. Started on vasoactive meds to help reverse ESLD alterations in vascular tone. Creatinine improved to 1.4, urine Na <5, FeUrea 13%, ammonia improved from 60s to 40s. eGFR 85cc/min. Started on aldactone and lasix, ratio 100:40 to help reduce ascites, octreotide for splanchnic vasocontriction, misoprostol for renal vasodilation, midodrine for peripheral vasocontriction. Added mucomyst this am. Other than this cocktail, I have nothing to offer Mr Wagner for his renal issues associated with his ESLD. He is not a candidate for hemodialysis should the need arise, as he is not a candidate for liver transplant while still drinking. Exam (PN)-Nephrology - Vital Signs Vital signs: Period Temp Pulse Resp BP Sys/Lai Pulse Ox Last 24 Hr 97.5 F-100.6 F 78-96 16-20 92-109/60-70 97-99 - General Appearance General appearance: well-developed, chronically ill EENT: ATNC, PERRL, mucous membranes dry, hearing intact, scleral icterus Neck: no JVD, no thyromegaly Respiratory: no kyphosis, clear Cardiology: no murmurs, no rub, edema Gastrointestinal: hypoactive bowel sounds, no tenderness, distended Integumentary: no rash, warm and dry Neurologic: no focal deficit, disoriented Musculoskeletal: no deformities, no erythema, no cyanosis Psychiatric: depressed, cooperative - Lab 10/15/16 06:32 10/15/16 06:32 Most recent lab results Calcium 7.0 MG/DL (8.5-10.1) L 10/15/16 06:32 Magnesium 2.2 MG/DL (1.8-2.4) 10/14/16 04:18 Assessment and Plan (1) LOUIS (acute kidney injury) Problem details: Functional prerenal azotemia with ESLD. Improved on HRS cocktail. High risk for hepatorenal syndrome. Not a dialysis candidate as he is not a liver transplant candidate. Status: Acute Assessment and plan: Start misoprostol to help reverse profound intrarenal vasoconstriction seen in ESLD. Check urine sodium to help guide diuretic therapy for ascites. Aldactone alone for urine Na >30, add lasix when urine Na 10-30. at ratio of 100 aldactone to 40 lasix. Trial of octreotide to help reduce splanchnic bed dilation. Midodrine 2.5mg po q8h to help reverse peripheral vasodilation. Add mucomyst today. At discharge could consider monthly intragluteal injection of lonng acting octreotide. Current Visit: Yes (2) End stage liver disease Problem details: Per GI service. Status: Chronic Current Visit: Yes
[2016-10-15] MEDS: DESITIN 4OZ/NYSTATIN 15 GRAM MIXTURE PASTE TOP SCH ×2 (16:24→20:32)
--- NOTE | 2016-10-15 17:18 | Hospitalist Progress Note ---
Assessment and Plan (1) Seizure disorder Status: Chronic Current Visit: Yes (2) ETOH abuse Status: Acute Current Visit: Yes (3) End stage liver disease Problem details: Per GI service. Status: Chronic Current Visit: Yes (4) Thrombocytopenia Status: Acute Current Visit: Yes (5) LOUIS (acute kidney injury) Problem details: Functional prerenal azotemia with ESLD. Improved on HRS cocktail. High risk for hepatorenal syndrome. Not a dialysis candidate as he is not a liver transplant candidate. Status: Acute Current Visit: Yes (6) Scrotal edema Status: Acute Current Visit: Yes Hospitalist: Subjective Interval history: No acute events overnight. Patient denies any pain. He feels that his scrotal swelling is improved. Nephrology assisting. Exam - Constitutional Vitals: Period Temp Pulse Resp BP Sys/Lai Pulse Ox Last 24 Hr 97.5 F-100.6 F 78-96 16-20 92-109/60-70 97-99 General appearance: over weight - Head Head exam: Present: normocephalic, atraumatic - Eye Eye exam: Present: EOMI Pupils: Present: BONNIE - ENT ENT exam: Present: normal exam - Neck Neck exam: Present: normal inspection - Respiratory Respiratory exam: Present: clear to auscultation bilaterally. Absent: rhonchi, wheezes - Cardiovascular Cardiovascular exam: Present: regular rate and rhythm - GI/Abdominal GI/Abdominal exam: Present: normal bowel sounds, soft. Absent: tenderness, rebound - Extremities Exam Extremities exam: Present: normal inspection - Back Exam Back exam: Present: normal inspection - Neurological Exam Neurological exam: Present: alert, oriented X3 - Psychiatric Psychiatric exam: Present: normal affect, normal mood - Skin Skin exam: Present: warm, intact Results - Labs CBC & BMP: 10/15/16 06:32 10/15/16 06:32 Quality Measures - VTE Contraindication to Pharmacological VTE Prophylaxis: Thrombocytopenia
[2016-10-15] MEDS: PHENYTOIN ER 100 MG CAPSULE PO SCH (20:28)
[2016-10-16] MEDS: LACTULOSE 20 GM/30 ML UDCUP PO SCH ×6 (00:12→20:29)
[2016-10-16 05:17] LABS: Basophils # 0.1 10*3/uL (0.0-0.2); Basophils % 0.6 % (0.0-0.8); Eosinophils # 0.1 10*3/uL (0.0-0.87); Eosinophils % 1.2 % (0.00-10.9); Hematocrit 23.8 VOL% (42.0-52.0); Lymphocytes # 3.4 10*3/uL (1.4-4.0); Lymphocytes % 34.2 % (21.2-54.2); Mean Corpuscular HGB Conc 33.6 GM/DL (32-36); Mean Corpuscular Hemoglobin 26 PG (27-34); Mean Corpuscular Volume 75.8 FL (87-102); Mean Platelet Volume 9.1 FL (9.6-12.0); Monocytes # 2.5 10*3/uL (0.11-0.8); Monocytes % 25.6 % (1.7-12.7); Neutrophils # 3.7 10*3/uL (1.4-7.4); Neutrophils % 37.4 % (38.7-73.9); Platelet Count 101 T/CUMM (130-400); Red Blood Count 3.14 MC/CUMM (3.8-5.5); Red Cell Distribution Width 23.8 % (9.3-17.3); White Blood Count 9.9 T/CUMM (4-12)
[2016-10-16 05:41] LABS: Calcium 7.1 MG/DL (8.5-10.1); Magnesium 1.5 MG/DL (1.8-2.4); Osmolality,Calculated 268.1 MOS/KG (273-304); Potassium 3.4 MMOL/L (3.5-5.1)
[2016-10-16 05:57] LABS: Band Neutrophils 3 % (0-10); Eosinophils 1 % (0-10); Lymphocytes 14 % (20-55); Segmented Neutrophils 71 % (50-85); Total Cells Counted 100
[2016-10-16 05:58] LABS: Burr Cells Slight; Elliptocytes Few; Hypochromasia 1+; Microcytosis 1+; Platelet Estimate Decreased; Target Cells Few
[2016-10-16] MEDS: miSOPROStol 200 MCG TABLET PO SCH ×4 (09:43→20:31)
[2016-10-16] MEDS: POTASSIUM CHLORIDE 20 MEQ TABLET PO SCH (09:43)
[2016-10-16] MEDS: SPIRONOLACTONE 50 MG TABLET PO SCH (09:43)
[2016-10-16] MEDS: DESITIN 4OZ/NYSTATIN 15 GRAM MIXTURE PASTE TOP SCH ×2 (09:44→20:32)
[2016-10-16] MEDS: ACETYLCYSTEINE 600 MG CAPSULE PO SCH ×2 (09:44→20:32)
[2016-10-16] MEDS: FUROSEMIDE 20 MG/2 ML VIAL IV SCH ×2 (09:44→15:38)
[2016-10-16] MEDS: MIDODRINE 5 MG TABLET PO SCH ×3 (09:44→20:30)
[2016-10-16] MEDS: OCTREOTIDE 100 MCG/ML SYRINGE SUBCUT SCH ×3 (09:45→20:29)
[2016-10-16] MEDS ORDERED: MAGNESIUM SULF RIDER 2 GM in PREMIX 1 EACH IV PRN (10:15)
[2016-10-16] MEDS ORDERED: MAGNESIUM SULF RIDER 4 GM in PREMIX 1 EACH IV PRN (10:15)
--- NOTE | 2016-10-16 10:19 | EKG Report ---
Stationary ECG Study [facility] Test Date: 10/16/2016 10:19:25 AM Pat Name: BAKARI RUELAS Department: Room: 542 Gender: M Insurance Advisor: : 1975 Requested by: Janice Tesfaye Order Number: [id number] Reading MD: JOSUÉ MIKE Intervals Holt Rate: 84 P: 59 CA: 168 QRS: 48 QRSD: 86 T: 47 QT: 387 QTc: 428 Interpretive Statements SINUS RHYTHM Electronically Signed On 10-16-16 16:33:02 CDT by JOSUÉ MIKE [email or web address]
--- NOTE | 2016-10-16 11:36 | Nephrology Progress Note ---
Nephrology - PN: Subj Interval history: Pt states abdomen is less tense and scrotal edema improved subjectively. Creatinine down to 1.1 (normal) on multiple vasoactive prostaglandins. UOP increased. Appears to be responding well. Exam (PN)-Nephrology - Vital Signs Vital signs: Period Temp Pulse Resp BP Sys/Lai Pulse Ox Last 24 Hr 97.6 F-100.4 F 80-91 19-20 98-105/63-70 94-99 - General Appearance General appearance: well-developed, chronically ill EENT: ATNC, PERRL, mucous membranes dry, hearing intact, vision intact, scleral icterus Neck: JVD, no thyromegaly Respiratory: no kyphosis, clear Cardiology: no murmurs, no rub, no edema Gastrointestinal: normoactive bowel sounds, no tenderness Integumentary: no rash, warm and dry Neurologic: no focal deficit, no asterixis, confused Musculoskeletal: no deformities, no erythema Psychiatric: depressed, cooperative - Lab 10/16/16 04:31 10/16/16 04:31 Most recent lab results Calcium 7.1 MG/DL (8.5-10.1) L 10/16/16 04:31 Magnesium 1.5 MG/DL (1.8-2.4) L 10/16/16 04:31 Assessment and Plan (1) LOUIS (acute kidney injury) Problem details: Improved on HRS cocktail. High risk for hepatorenal syndrome. Not a dialysis candidate as he is not a liver transplant candidate. Status: Acute Assessment and plan: Continue misoprostol, octreotide, Midodrine, mucomyst. At discharge could consider monthly intragluteal injection of long acting octreotide. Current Visit: Yes (2) End stage liver disease Problem details: Per GI service. Status: Chronic Current Visit: Yes
[2016-10-16] MEDS ORDERED: PROPOFOL 200 MG/20 ML VIAL IV ONE (13:23)
[2016-10-16] MEDS ORDERED: PHENYLEPHRINE 1 MG/10 ML SYRINGE IV ONE (13:23)
[2016-10-16] MEDS ORDERED: LIDOCAINE 100 MG/5 ML SYRINGE ONE (13:23)
--- NOTE | 2016-10-16 13:27 | History and Physical Update ---
History and Physical Update - History and Physical H&P was reviewed, the patient examined and there: are no changes in the patients condition since last H&P was completed. - Physical Exam Mental Status: alert and oriented Heart: regular rate and rhythm Lung: clear to auscultation Abdomen: within normal limits Vitals: within normal limits
--- NOTE | 2016-10-16 13:39 | Anesthesia Post-Op ---
Anesthesia Post OP - Post Ansesthetic Evaluation Patient seen in post op: Yes Resp: within normal limits CV: within normal limits Mental: within normal limits Temp: within normal limits [id number]: within normal limits Nausea and Vomiting: within normal limits Pain: within normal limits
--- NOTE | 2016-10-16 13:44 | Operative Note ---
Date of procedure: 10/16/16 Pre-op diagnosis: Alcoholic cirrhosis, anemia Procedure: Procedure: Esophagogastroduodenoscopy Brief clinical abstract: Patient is a 41-year-old male with alcoholic liver disease. He has had recent anemia requiring transfusion but denies gross GI bleeding. He does have occult blood in his stool. Indication for procedure: Blood in stool, alcoholic cirrhosis Endoscopic findings:[After informed consent was obtained, the patient was placed in the left lateral decubitus position. The gastroscope was inserted in the upper esophagus under direct vision with no resistance encountered. Esophageal mucosa appeared normal down the level 22 cm below incisors. Distal to this were 4 columns of grade I-II esophageal varices. No bleeding stigmata were associated with these. The endoscope was advanced in the stomach which was carefully examined including retroflexed view of the cardia and fundus. No varices were seen in the stomach. Patient has marked prominence of the area gastricae pattern in the stomach consistent with portal gastropathy. Mild friability was noted. No vascular malformations were seen. The pyloric channel , duodenal bulb, second and third portion of the duodenum were normal. The endoscope was withdrawn and patient appeared to tolerate the procedure well. Impression: #1 grade I-II esophageal varices #2 moderate portal gastropathy Recommendations: Would start beta-sera for bleeding prophylaxis. Anesthesia: MAC Surgeon / Physician: Forrest Jaquez Estimated blood loss: none Specimens: none sent Condition: stable Disposition: post procedure unit Results - Labs CBC & BMP: 10/16/16 04:31 10/16/16 04:31 Discharge Plan - Discharge Medications No Action Phenytoin ER Cap [Dilantin Cap] 300 mg PO BEDTIME - Follow Up or Referral - Forms/Instructions
--- NOTE | 2016-10-16 15:50 | Hospitalist Progress Note ---
Assessment and Plan (1) Seizure disorder Status: Chronic Current Visit: Yes (2) ETOH abuse Status: Acute Current Visit: Yes (3) End stage liver disease Problem details: Per GI service. Status: Chronic Current Visit: Yes (4) Thrombocytopenia Status: Acute Current Visit: Yes (5) LOUIS (acute kidney injury) Problem details: Improved on HRS cocktail. High risk for hepatorenal syndrome. Not a dialysis candidate as he is not a liver transplant candidate. Status: Acute Current Visit: Yes (6) Scrotal edema Status: Acute Current Visit: Yes Hospitalist: Subjective Interval history: No acute events overnight. Long discussion with patient and his mother about his end stage liver disease diagnosis. Patient last alcohol use was roughly one month ago per patient, he now lives at home with his mother and is unable to care for himself. His mother is interested in home hospice. She seems to be very familiar with the process. The patient is not so sure about this. He says that he is going to fight this. Social work will speak to them further to answer any more questions. EGD today with grade I-II esophageal varices and moderate portal gastropathy. H/H stable. LOUIS is now resolved. Possible discharge soon. Exam - Constitutional Vitals: Period Temp Pulse Resp BP Sys/Lai Pulse Ox Last 24 Hr 97.6 F-99.7 F 79-90 16-21 99-122/64-78 94-100 General appearance: normal weight - Head Head exam: Present: normocephalic, atraumatic - Eye Eye exam: Present: EOMI Pupils: Present: BONNIE - ENT ENT exam: Present: normal exam - Neck Neck exam: Present: normal inspection - Respiratory Respiratory exam: Present: clear to auscultation bilaterally. Absent: rhonchi, wheezes - Cardiovascular Cardiovascular exam: Present: regular rate and rhythm - GI/Abdominal GI/Abdominal exam: Present: normal bowel sounds, distended, soft. Absent: tenderness - Extremities Exam Extremities exam: Present: normal inspection - Back Exam Back exam: Present: normal inspection - Neurological Exam Neurological exam: Present: alert, oriented X3 - Psychiatric Psychiatric exam: Present: normal affect, normal mood - Skin Skin exam: Present: warm, intact Results - Labs CBC & BMP: 10/16/16 04:31 10/16/16 04:31 Quality Measures - VTE Contraindication to Pharmacological VTE Prophylaxis: Thrombocytopenia
[2016-10-16] MEDS: PHENYTOIN ER 100 MG CAPSULE PO SCH (20:30)
[2016-10-16] MEDS: PROPRANOLOL 20 MG TABLET PO SCH (20:31)
[2016-10-17] MEDS: LACTULOSE 20 GM/30 ML UDCUP PO SCH ×4 (00:24→12:48)
[2016-10-17 06:00] LABS: Basophils # 0.1 10*3/uL (0.0-0.2); Basophils % 1.1 % (0.0-0.8); Eosinophils # 0.2 10*3/uL (0.0-0.87); Eosinophils % 1.7 % (0.00-10.9); Hematocrit 24.5 VOL% (42.0-52.0); Hemoglobin 8.2 GM/DL (14.0-18.0); Immature Granulocytes % 1.3 %; Immature Granulocytes Absolute 0.13 #; Lymphocytes # 3.1 10*3/uL (1.4-4.0); Lymphocytes % 30.6 % (21.2-54.2); Mean Corpuscular HGB Conc 33.5 GM/DL (32-36); Mean Corpuscular Hemoglobin 26 PG (27-34); Mean Corpuscular Volume 76.6 FL (87-102); Monocytes % 19.6 % (1.7-12.7); Neutrophils # 4.6 10*3/uL (1.4-7.4); Neutrophils % 45.7 % (38.7-73.9); Platelet Count 111 T/CUMM (130-400); Red Cell Distribution Width 23.5 % (9.3-17.3)
[2016-10-17 06:18] LABS: Calcium 7.1 MG/DL (8.5-10.1); Magnesium 1.8 MG/DL (1.8-2.4); Osmolality,Calculated 268.1 MOS/KG (273-304); Potassium 3.4 MMOL/L (3.5-5.1)
[2016-10-17 06:30] LABS: Lymphocytes 22 % (20-55); Segmented Neutrophils 69 % (50-85); Total Cells Counted 100
[2016-10-17 06:31] LABS: Atypical Lymphocytes Moderate; Hypochromasia 2+; Platelet Estimate Decreased; Target Cells Slight
[2016-10-17] MEDS: SPIRONOLACTONE 50 MG TABLET PO SCH (08:39)
[2016-10-17] MEDS: PROPRANOLOL 20 MG TABLET PO SCH (08:39)
[2016-10-17] MEDS: MIDODRINE 5 MG TABLET PO SCH (08:39)
[2016-10-17] MEDS: ACETYLCYSTEINE 600 MG CAPSULE PO SCH (08:39)
[2016-10-17] MEDS: DESITIN 4OZ/NYSTATIN 15 GRAM MIXTURE PASTE TOP SCH (08:40)
[2016-10-17] MEDS: POTASSIUM CHLORIDE 20 MEQ TABLET PO SCH (08:40)
[2016-10-17] MEDS: miSOPROStol 200 MCG TABLET PO SCH ×2 (08:40→12:48)
[2016-10-17] MEDS: FUROSEMIDE 20 MG/2 ML VIAL IV SCH (08:41)
[2016-10-17] MEDS ORDERED: FUROSEMIDE 40 MG TABLET PO SCH (08:45)
--- NOTE | 2016-10-17 10:35 | Discharge Summary ---
Hospital Course - Hospital Course Hospital Course: Mr. Wagner is a 41 year old black male that presented to the emergency department with scrotal pain and swelling. He was accompanied by his sisters who provided the majority of the history. Patient reports he was seen at another hospital in [facility] a few days ago and was sent home. Triage records indicate the patient complains of rectal bleeding but is unsure if it is coming from the rectum or scrotum due to significant amount of swelling in that area. According to his family members, this has been an ongoing problem for over a year. After approximately 30 minutes of questioning the patient and his family members they were forthcoming with the fact that he was diagnosed with advanced cirrhosis and given approximately 6 months to live- this happened approximately 18 months ago. Initially the patient continued to drink alcohol but stopped drinking one month ago per him. Further examination reveals a markedly enlarged scrotum that was very painful to touch and had evidence of skin breakdown bilaterally with some bleeding and oozing. The pain is severe, constant and worsening over the last several days to months. The patient is being admitted to the hospitalist service for further evaluation and treatment of his severe scrotal edema pain and swelling as well as treatment of the sequela of chronic liver disease and consultation with gastroenterology and nephrology. Patient's creatinine was elevated to 2.8 on admission, nephrology evaluated, started on misoprostol, aldactone and octreotide. Renal function has improved to normal limits. EGD was performed which showed grade I-II esophageal varices adn moderate portal gastropathy. He did require a blood transfusion during admission. H/H is now stable. Long discussion with patient, his mother and his sisters about his overall poor prognosis. The family has decided on discharge with home hospice. - Time spent with patient Time with patient DS: Less than 30 minutes Diagnosis - Discharge Diagnosis (1) Seizure disorder Status: Chronic (2) ETOH abuse Status: Acute (3) End stage liver disease Status: Chronic (4) Thrombocytopenia Status: Chronic (5) LOUIS (acute kidney injury) Status: Resolved (6) Scrotal edema Status: Chronic Discharge Plan - Discharge Data Disposition: Hospice - Home Condition at Discharge: Guarded Discharge Diet: advance to your usual diet Activity: resume usual activities as tolerated Hygiene: no restrictions - Discharge Medications New HYDROcodone/ACETAMIN 10-325 [[place] 10-325] 1 tablet PO Q4H PRN #60 tablet PRN Reason: Pain Severe (8-10) Lactulose Liquid [Chronulac] 20 gm PO Q4H #473 ml Spironolactone [Aldactone] 100 mg PO DAILY #60 tablet Zaleplon [Sonata] 5 mg PO BEDTIME PRN #30 capsule PRN Reason: Insomnia Midodrine [Proamatine] 5 mg PO TID #90 tablet Furosemide Tab [Lasix Tab] 40 mg PO BID DIURETIC #60 tablet Propranolol Tab [Inderal Tab] 20 mg PO BID #60 tablet Continue Phenytoin ER Cap [Dilantin Cap] 300 mg PO BEDTIME - Follow Up or Referral - Forms/Instructions Exam - Constitutional Vitals: Period Temp Pulse Resp BP Sys/Lai Pulse Ox Last 24 Hr 97.8 F-99.3 F 73-88 16-21 94-122/59-78 94-100 General appearance: normal weight - Head Head exam: Present: normocephalic, atraumatic - Eye Eye exam: Present: EOMI Pupils: Present: BONNIE - ENT ENT exam: Present: normal exam - Neck Neck exam: Present: normal inspection - Respiratory Respiratory exam: Present: clear to auscultation bilaterally. Absent: rhonchi, wheezes - Cardiovascular Cardiovascular exam: Present: regular rate and rhythm - GI/Abdominal GI/Abdominal exam: Present: normal bowel sounds, soft. Absent: tenderness, rebound - Extremities Exam Extremities exam: Present: normal inspection - Back Exam Back exam: Present: normal inspection - Neurological Exam Neurological exam: Present: alert, oriented X3 - Psychiatric Psychiatric exam: Present: normal affect, normal mood - Skin Skin exam: Present: warm, intact Discharge Results Procedures and tests throughout hospitalization: Pending Orders 10/15/16 12:45 Occult Blood, Stool Routine 10/17/16 08:34 Creatinine,Urine Random Routine Sodium, Urine Random Routine Urea Nitrogen, Urine Random Routine Labs on day of discharge: Labs from last 24 hours 10/17/16 10/17/16 05:30 05:30 WBC 10.0 RBC 3.20 L Hgb 8.2 L Hct 24.5 L MCV 76.6 L MCH 26 L MCHC 33.5 RDW 23.5 H Plt Count 111 L MPV 9.0 L Neut % (Auto) 45.7 Lymph % (Auto) 30.6 Faulk % (Auto) 19.6 H Eos % (Auto) 1.7 Baso % (Auto) 1.1 H Neut # (Auto) 4.6 Lymph # (Auto) 3.1 Faulk # (Auto) 2.0 H Eos # (Auto) 0.2 Baso # (Auto) 0.1 Total Counted 100 Immature Gran % 1.3 Nucleated RBC % 0.0 Immature Gran # 0.13 Segmented Neutrophils 69 Lymphocytes 22 Monocytes 9 Nucleated RBCs # 0.00 Atypical Lymphocytes Moderate Platelet Estimate Decreased Hypochromasia 2+ Target Cells Slight Sodium 135 L Potassium 3.4 L Chloride 102 Carbon Dioxide 26 Anion Gap 10.4 BUN 7 Creatinine 1.00 GFR Calculation 128 BUN/Creatinine Ratio 7.00 Glucose 115 H Calculated Osmolality 268.1 L Calcium 7.1 L Magnesium 1.8 DS: Provider Date of admission: 10/13/16 17:48 Primary care physician: . No PCP Attending physician on admission: Anthony Briceno Consults: 10/13/16 19:26 Consult to Physician [CONS] Routine Comment: LOUIS with ESLD Consulting Provider: Derrell Sparks Person Notified: aware Date Notified: 10/14/16 Time Notified: 11:00 Consult to Physician [CONS] Routine Comment: cirrhosis, ESLD Consulting Provider: Forrest Jaquez Person Notified: aware Date Notified: 10/14/16 Time Notified: 12:05 10/13/16 21:39 Consult to Pharmacy [CONS] Routine Reason for Pharmacy Consult: Adjust Meds Renal Funct 10/14/16 08:04 Consult to Physician [CONS] Routine Comment: scrotal sweiiling, possible catheter Consulting Provider: Neville Leon Person Notified: aware Date Notified: 10/14/16 Time Notified: 10:00 10/14/16 10:12 Consult to Pastoral Services [CONS] Routine Comment: Pastoral Screen: Declines Visit Pastoral Screen Source of Request: Family Discharging clinician: Capri Awad MD
[2016-10-17 11:44] VITALS: BP 116/71
--- NOTE | 2016-10-17 12:58 | Nephrology Progress Note ---
Nephrology - PN: Subj Interval history: Pt denies increased abdominal distention. UOP brisk. Creatinine down to 1.0 on multiple vasoactive meds. Lasix switched to po 40mg bid. Cost of montly IM octreotide cost prohibitive ($6.6k/month). Being discharged today. Discussed that he will from his ESLD. At high risk for SBP. Exam (PN)-Nephrology - Vital Signs Vital signs: Period Temp Pulse Resp BP Sys/Lai Pulse Ox Last 24 Hr 98.2 F-99.3 F 73-88 16-21 94-122/59-78 94-100 - General Appearance General appearance: well-developed, chronically ill EENT: ATNC, PERRL, mucous membranes dry, hearing intact, vision intact Neck: JVD, no thyromegaly Respiratory: no kyphosis, clear Cardiology: no murmurs, no rub, edema Gastrointestinal: normoactive bowel sounds, no tenderness, distended Integumentary: no rash, warm and dry Neurologic: no focal deficit, disoriented Musculoskeletal: no deformities, no erythema, no cyanosis Psychiatric: depressed, cooperative - Lab 10/17/16 05:30 10/17/16 05:30 Most recent lab results Calcium 7.1 MG/DL (8.5-10.1) L 10/17/16 05:30 Magnesium 1.8 MG/DL (1.8-2.4) 10/17/16 05:30 Assessment and Plan (1) LOUIS (acute kidney injury) Problem details: Improved on HRS cocktail. High risk for hepatorenal syndrome and spontaneous bacterial peritonitis. Not a dialysis candidate as he is not a liver transplant candidate. Status: Resolved Assessment and plan: Continue misoprostol, Midodrine, mucomyst. Aldactone and lasix at 100:40 ratio to help keep ascites down. Fluid restrict to 1.5L/day. Bedrest. No added salt diet (2gm/day). Recommend hospice. Premorbid. Current Visit: Yes (2) End stage liver disease Problem details: Per GI service. Status: Chronic Current Visit: Yes Specialty Discharge - Follow Up or Referrals
== END 2016-10-17 12:56 | disposition hospice, home (50) | DRG 729 ==
LOC: N.ED 15:58 → SUATTDRO 17:48 → N.EDINP 17:48 → N.5E 19:08
PROVIDERS: ATTEND Internal Medicine